=== PATIENT | female | born 1950 | race Two or more races ===

== ENCOUNTER → 2024-06-24 | Outpatient (CLI) | payer OTHER, MEDICAID, SELFPAY ==
--- NOTE | 2024-06-24 10:45 | XR_ITS ---
Examination: Diagnostic digital mammography, bilateral Computer aided detection 3-D breast Tomosynthesis, bilateral Date and time of exam: June 24, 2024 1104 hours INDICATIONS: Left breast lump noticed beginning one week ago Technique: Nonmagnified MLO, CC views of the breasts to been obtained, reconstructed from 3-D Tomosynthesis images. R2 computer aided detection program utilized for evaluation of suspicious masses and/or abnormal calcifications. 3-D Tomosynthesis images obtained. Findings: Scattered areas of fibroglandular density Stable focal asymmetry slightly inner right breast on the CC view Circumscribed masses retroareolar region left breast in aggregate measuring 5.5 cm which may represent cysts Impression: BI-RADS Category 0: Incomplete: Need additional imaging evaluation Recommend follow-up left breast sonography to confirm cyst in the retroareolar region left breast.
== END | disposition home or self-care (01) ==
PROVIDERS: Referring Provider Family Medicine; Visit Provider Family Medicine
DX: R92.8 Other abnormal and inconclusive findings on diagnostic imaging of breast (principal)
CPT/HCPCS: 77062; 77066; G0279

== ENCOUNTER 2025-01-26 12:53 | Outpatient (RCR) | payer OTHER, MEDICAID, SELFPAY ==
--- NOTE | 2025-01-13 12:19 | CTCCONSULT_ITS ---
Patient: ABNER MENDOZA : 1950 MR#: [id number] Page 4 of 5 CONSULTATION NOTE DATE OF CONSULTATION: 01/13/2025 NAME: ABNER MENDOZA ACCOUNT: [id number] : 1950 AGE: 74 REFERRING PHYSICIAN: Wilian Rosas MD PRIMARY PHYSICIAN: Yonathan Baeza MD REASON FOR VISIT: New diagnosis of breast cancer ONCOLOGY HISTORY: DIAGNOSIS: Malignant neoplasm of central portion of left female breast [ICD10] C50.112 DATE OF DIAGNOSIS: 12/04/2024 STAGE/TNM: IIB T3 N0 M0 TREATMENT HISTORY: Care?Plan Start?Date Cycle Day Intent 01/13/2025 Arimidex 1 mg tablet daily HISTORY OF PRESENT ILLNESS: 74-year-old female with a new diagnosis of breast cancer. Patient is living in the halfway after she had stroke. 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 Tobacco?Use:?Denies ETOH?Use:?Denies Drug?Note:?Denies Social History Note:?Resident [facility] CONSULTANT HISTORY: Menarche?-?Age:?16 :?0 Live?Births:?0 MEDICATIONS: 1. Arimidex - 1 mg 1 tab Daily 2. benazepril - 10 mg 2 tab Daily 3. Calcium 500 - 500 mg 1 tab Three times a day 4. carvedilol - 6.25 mg 1 tab Twice a Day 5. Catapres-Tts 2 - 0.2 mg/24 hr 1 Patch Weekly 6. Catapres-Tts 3 - 0.3 mg/24 hr 1 Patch Weekly 7. cranberry extract - 425 mg 1 Capsule Daily 8. cyanocobalamin (vitamin B-12) - 500 mcg 1 tab Daily 9. docusate sodium - 100 mg 2 tab Twice a Day 10. DULoxetine - 60 mg 1 Twice a Day 11. Enulose - 10 gram/15 mL 30 cc Daily 12. Naomi-Lanta - 200-200-20 mg/5 mL 20 cc Every 8 Hours 13. glimepiride - 1 mg 1 tab Daily 14. guaiFENesin - 100 mg/5 mL 10 cc Every 6 Hours 15. insulin glargine - 100 unit/mL 20 Units Every day before sleep 16. lisinopril - 20 mg 1 tab Daily 17. melatonin - 3 mg 2 tab Every day before sleep 18. NovoLIN R Regular U-100 Insuln - 100 unit/mL As directed 19. ondansetron - 4 mg tab Every 6 Hours 20. Ozempic - 0.25 mg or 0.5 mg (2 mg/3 mL) 1 mg Weekly 21. pantoprazole - 40 mg 1 tab Daily 22. Pepcid - 40 mg 1 tab Daily 23. pravastatin - 40 mg 1 tab Daily 24. senna - 187 mg 1 tab Every 12 Hours 25. traMADol - 50 mg 1 tab Every 12 Hours 26. traZODone - 50 mg 1 tab Every 12 Hours 27. turmeric root extract - 500 mg 1 tab Twice a Day 28. Tylenol - 325 mg 2 tab Every 6 Hours 29. Vitamin D - 5,000 unit 1 tab Daily?Palabra Meds? Medications Last Reconciled by Laurie Valiente RN on 01/13/2025 ALLERGIES: No Known Drug Allergies REVIEW OF SYSTEMS: A complete 14-point review of systems was performed and is negative except as noted in interval history. PHYSICAL EXAMINATION: VITAL SIGNS: B/P?119/477, Height?63?inches, Oxygen?Saturation?96% Weight?165?lbs PAIN: 0 - No pain ECOG Performance Status: 0 - Asymptomatic and fully active GENERAL APPEARANCE: Appears well, in no apparent distress, appropriately interactive. HEENT: Normocephalic, no temporal wasting, normal conjunctiva, no scleral icterus, normal hearing, lips without lesions, neck normal range of motion. CARDIOVASCULAR: Not assessed. PULMONARY: Normal respiratory effort, no respiratory distress or use of accessory muscles, speaking in full sentences, no tachypnea. EXTREMITIES: No pedal edema or cyanosis. SKIN: Normal skin appearance. NEUROLOGIC: Alert and oriented x4. PSHYCHIATRIC: Appropriate affect, mood normal, behavior normal, intact thought and speech. LABORATORY DATA: I have personally reviewed and interpreted each of the patient?s relevant lab tests, abnormal findings are below: Date ASSESSMENT/PLAN: Left Breast cancer Patient is doing well Surgery well-healed Naterra ordered for monitoring bone density to evaluate bone health Will start on Arimidex 1 mg tablet daily Advised to take calcium and vitamin D3 daily RTC in 4 weeks ORDERS: Order # Description [id number] Comprehensive Metabolic Panel - 12 + CBC with Auto Diff + MD Follow Up 4 Week + CA 15-3 RETURN TO CLINIC: I reviewed the diagnosis, prognosis, and recommended treatment/procedure options with the patient (and/or their legal videotape sales representative), including the potential benefits, risks, side effects and alternative therapies. We also discussed the option of no treatment and the possibility of clinical trial participation, if applicable. All questions were addressed, and they demonstrated understanding. They provided informed consent to proceed with the proposed plan of care. BILLING AND COMPLIANCE: I reviewed external records from providers outside my specialty as summarized above. I spent a total of 50 minutes on this patient?s care on the day of their visit excluding time spent related to any billed procedures. This time includes time spent with the patient as well as time spent documenting in the medical record, reviewing patients records and tests, obtaining history, placing orders, communicating with other healthcare professionals, counseling the patient, family or caregiver, and/or care coordination for the diagnoses above. Electronically Signed by: Yonathan Baeza MD T: 12:17 PM CC: PCP: Yonathan Baeza Referring: Wilian Rosas This document was completed utilizing speech recognition software. Grammatical errors, random word insertions, pronoun errors, and incomplete sentences are an occasional consequence of this system due to software limitations, ambient noise, and hardware issues. Any formal questions or concerns about the content, text or information contained within the body of this dictation should be directly addressed to the provider for clarification.
== END 2025-02-02 23:59 | disposition home or self-care (01) ==
LOC: SCTC 12:53
PROVIDERS: PCP Hospitalist; Referring Provider Surgery; Visit Provider Radiology Therapeutic Radiology
DX: C50.112 Malignant neoplasm of central portion of left female breast (principal); Z17.0 Estrogen receptor positive status [ER+]; Z17.21 Progesterone receptor positive status; Z17.32 Human epidermal growth factor receptor 2 negative status; Z90.12 Acquired absence of left breast and nipple; Z79.811 Long term (current) use of aromatase inhibitors
CPT/HCPCS: 99213; G0463

== ENCOUNTER → 2025-02-02 | Outpatient (CLI) | payer OTHER, MEDICAID, SELFPAY ==
--- NOTE | 2025-02-02 13:00 | XR_ITS ---
Examination: Bone densitometry Date and time of exam:February 02, 2025, 1257 hours INDICATIONS: Menopause age 52, diabetic, diagnosis left breast carcinoma Technique: Lumbar spine and hip total bone mineralization values of an calculated. Peak reference and age match control results have been displayed. Findings: Lumbar spine total bone mineralization is0.982 gm/cm2. This is 0.6 standard deviations below peak reference. This is 1.7 standard deviations above age-matched controls. Hip total bone mineralization is 0.710 gm/cm2 This is 1.9 standard deviations below peak reference. This is 0.2 standard deviations below age-matched controls Impression: There is normal mineralization based on lumbar spine measurements. There is osteopenia based on hip measurements
== END | disposition home or self-care (01) ==
PROVIDERS: PCP Internal Medicine Hematology & Oncology; Referring Provider Internal Medicine Hematology & Oncology; Visit Provider Internal Medicine Hematology & Oncology
DX: M85.88 Other specified disorders of bone density and structure, other site (principal); C50.112 Malignant neoplasm of central portion of left female breast
CPT/HCPCS: 77080

== ENCOUNTER 2025-02-26 08:24 | Outpatient (RCR) | payer OTHER, MEDICAID, SELFPAY ==
--- NOTE | 2025-02-10 14:36 | CTCSNOTE_ITS ---
[facility] [address] [place], [place] [address] CT Simulation Note Date: 02/10/2025 MR# [id number] Name: ABNER MENDOZA : 1950 (A) DIAGNOSIS: C50.112 Malignant neoplasm of central portion of left female breast (B) Patient was placed in supine position and used Vac-Terri for immobilization purposes. (C) CT slices included left breast (D) 3D Will be needed for maximum sparing of adjacent normal critical structures. (E) Patient tolerated the simulation well and left the room in good condition. Electronically signed by: Flynn Martinez MD, SCAR 02/10/2025 2:33 PM
== END 2025-03-05 23:59 | disposition home or self-care (01) ==
LOC: SCTC 08:24
PROVIDERS: PCP Family Medicine; Referring Provider Radiology Therapeutic Radiology; Visit Provider Internal Medicine Hematology & Oncology
DX: Z51.0 Encounter for antineoplastic radiation therapy (principal); C50.812 Malignant neoplasm of overlapping sites of left female breast; Z17.0 Estrogen receptor positive status [ER+]; Z17.21 Progesterone receptor positive status; Z17.32 Human epidermal growth factor receptor 2 negative status; Z90.12 Acquired absence of left breast and nipple
CPT/HCPCS: 77014; 77290; 77295; 77300; 77334; 99212; G0463

== ENCOUNTER 2025-03-04 08:13 | Outpatient (CLI) | payer OTHER, MEDICAID, SELFPAY ==
[2025-03-03 11:24] LABS: Basophils # (Auto) 0.0 Thou/mm3 (0.0-0.2); Basophils % (Auto) 1 % (0-2.5); Eosinophils # (Auto) 0.3 Thou/mm3 (0.0-0.5); Eosinophils % (Auto) 4 % (0-10); Hematocrit 38.1 % (36.0-46.0); Hemoglobin 11.9 g/dL (12.0-16.0); Immature Granulocytes Auto 0.03 Thou/mm3 (0.00-0.00); Lymphocytes # (Auto) 2.7 Thou/mm3 (1.0-4.8); Lymphocytes % (Auto) 34 % (10-50); Mean Corpuscular HGB Conc 31.2 g/dl (31.0-37.0); Mean Corpuscular Hemoglobin 26.9 pg (25.0-35.0); Mean Corpuscular Volume 86 fL (80-100); Monocytes # (Auto) 0.5 Thou/mm3 (0.0-0.8); Monocytes % (Auto) 7 % (0-12); Neutrophils # (Auto) 4.3 Thou/mm3 (1.8-7.7); Neutrophils % (Auto) 54 % (37-80); Nucleated Red Blood Cell # 0.00 Thou/mm3 (0.00-0.00); Nucleated Red Blood Cell % 0 /100 WBC (0); Platelet Count 279 Thou/mm3 (140-440); RDW Standard Deviation 50.2 fL (36.4-46.3); Red Blood Count 4.43 Miln/mm3 (4.00-5.20); White Blood Count 8.0 Thou/mm3 (3.6-11.0)
[2025-03-03 11:31] LABS: INR 1.0 (0.9-1.3); Partial Thromboplastin Time 26.4 Seconds (22.0-36.0); Prothrombin Time 10.5 Seconds (9.0-12.2)
[2025-03-04] VITALS (8 sets, daily range): BP systolic 154–213; BP diastolic 83–98; PULSE 71–85; RESP 14–17; TEMP 36.7–36.9; O2SAT 92–100
--- NOTE | 2025-03-04 09:00 | XR_ITS ---
Examination: IR venous implantation Port-A-Cath. Ultrasound-guided needle placement right internal jugular vein. Fluoroscopy AP Chest, portable single view Exam date and time: March 04, 2025, 0855 hours INDICATIONS: Breast carcinoma diagnosis, need for long-term intravenous antibiotic therapy. Informed consent provided Technique: A timeout was completed, verifying correct patient, procedure, site, positioning, and special equipment if applicable The patient was placed in a dependent position appropriate for central line placement based on the vein to be cannulated. The patient's right neck was prepped and draped in sterile fashion. Maximum Sterile Barrier Technique used including cap, mask, sterile gown, sterile gloves, and sterile full body drape. If ultrasound technique used: sterile gel and sterile probe covers. Hand Hygiene performed using proper scrub, soap and water, or alcohol-based hand rub. Site right portable apparatus utilized to confirm patency of the right internal jugular vein, utilizing ultrasound for guidance 10/04 21-gauge needle puncture into the right internal jugular vein Ultrasound images were recorded and stored. Successful micropuncture with a 21-gauge needle was performed. 0.18 wire guide was introduced into the IVC under fluoroscopic guidance. The wires is then exchanged for a 0.25 J-wire guide placed in the vena cava. Subcutaneous pocket formed with blunt dissection in the upper chest Portacatheter reservoir connected to a 8 Tajik Port-A-Cath line, 19 cm placed through the venous sheath into the superior vena cava under fluoroscopic guidance Perfusion to the extremity distal to the point of catheter insertion was checked and found to be adequate The attending radiologist was present for the entire procedure Estimated blood loss 5 cc. Findings: Under fluoroscopy, the tip of the Port-A-Cath is in good position in the vena cava. Portable chest x-ray, post Port-A-Cath placement, as ordered. Impression: Successful ultrasound-guided needle placement right internal jugular vein. Successful IR venous implantation Port-A-Cath percutaneous. Fluoroscopy 0.2-minute radiation dose 4.72 mGy 1 spot fluoroscopic chest. AP portable chest completion procedure demonstrates satisfactory position Port-A-Cath tip SVC. May use Port-A-Cath
[2025-03-04] MEDS: HEPARIN SOD LOCK SYR 100 UNIT/ML 500 UNIT IV (09:20)
[2025-03-04] MEDS: LIDOCAINE 1% W/EPI 1:100K 20 ML VIAL 4 ML INFL (09:20)
[2025-03-04] MEDS: LIDOCAINE INJ PF 1% 30 ML VIAL 6 ML INFL (09:20)
[2025-03-04] MEDS: ceFAZolin/D5W 1 GM IVPB 1 GM/50 ML BAG 100 GM INFL (09:25)
[2025-03-04] MEDS: ceFAZolin/D5W 1 GM IVPB 1 GM/50 ML BAG IV (09:30)
[2025-03-04] MEDS: fentaNYL CIT INJ 50 mCg/ML AMP 2ML 100 MCG IVP (09:55)
== END 2025-03-04 11:25 | disposition home or self-care (01) ==
LOC: SLAB 08:13 → SIRX 08:15
PROVIDERS: PCP Family Medicine; Referring Provider Internal Medicine Hematology & Oncology; Visit Provider Radiology Diagnostic Radiology
DX: C50.112 Malignant neoplasm of central portion of left female breast (principal)
CPT/HCPCS: 36571; 36415; 76937; 77001; 85025; 85610; 85730; A4649; C1769; C1788; C1894; J0689; J1642; J3010; J3490; J7050

== ENCOUNTER 2025-03-31 08:57 | Outpatient (RCR) | payer OTHER, MEDICAID, SELFPAY ==
[2025-03-08 16:19] LABS: Basophils # (Auto) 0.0 Thou/mm3 (0.0-0.2); Basophils % (Auto) 0 % (0-2.5); Eosinophils # (Auto) 0.0 Thou/mm3 (0.0-0.5); Eosinophils % (Auto) 0 % (0-10); Hematocrit 38.2 % (36.0-46.0); Hemoglobin 12.1 g/dL (12.0-16.0); Immature Granulocytes Auto 0.09 Thou/mm3 (0.00-0.00); Lymphocytes # (Auto) 1.1 Thou/mm3 (1.0-4.8); Lymphocytes % (Auto) 14 % (10-50); Mean Corpuscular HGB Conc 31.7 g/dl (31.0-37.0); Mean Corpuscular Hemoglobin 27.6 pg (25.0-35.0); Mean Corpuscular Volume 87 fL (80-100); Monocytes # (Auto) 0.1 Thou/mm3 (0.0-0.8); Monocytes % (Auto) 1 % (0-12); Neutrophils # (Auto) 6.2 Thou/mm3 (1.8-7.7); Neutrophils % (Auto) 83 % (37-80); Nucleated Red Blood Cell # 0.00 Thou/mm3 (0.00-0.00); Nucleated Red Blood Cell % 0 /100 WBC (0); Platelet Count 238 Thou/mm3 (140-440); RDW Standard Deviation 50.4 fL (36.4-46.3); Red Blood Count 4.39 Miln/mm3 (4.00-5.20); White Blood Count 7.4 Thou/mm3 (3.6-11.0)
[2025-03-08 16:26] LABS: Alanine Aminotransferase 22 U/L (10-49); Albumin, Serum 4.1 gm/dL (3.4-4.8); Albumin/Globulin Ratio 1.5 (1.2-2.2); Alkaline Phosphatase 152 U/L (46-116); Anion Gap 11 (7-16); Aspartate Amino Transferase 18 U/L (0-34); BUN/Creatinine Ratio 12 Ratio (12-20); Bilirubin,Total 0.2 mg/dL (0.3-1.2); Blood Urea Nitrogen 15 mg/dL (9-23); Calcium 9.2 mg/dL (8.3-10.6); Calcium (Corrected) 9.2 mg/dL (8.5-10.1); Carbon Dioxide 24.0 mMol/L (20.0-31.0); Chloride 105 mMol/L (98-107); Creatinine (Component) 1.3 mg/dL (0.6-1.3); Globulin 2.7 gm/dL (2.3-3.5); Glucose 352 mg/dL (74-106); Osmolality,Calculated 294 (275-295); Potassium 4.5 mMol/L (3.4-5.1); Sodium 140 mMol/L (136-145); Total Protein 6.8 gm/dL (5.7-8.2); eGFR 44 See Note
[2025-03-08 16:41] LABS: CA 15-3 2.5 U/mL (<32.4)
--- NOTE | 2025-03-21 20:11 | CTCFLWUP_ITS ---
Patient: ABNER DE JESUS : 1950 Page 2 of 3 FOLLOW UP NOTE DATE OF SERVICE: 03/18/2025 NAME: ABNER DE JESUS ACCOUNT: [id number] : 1950 AGE: 74 INTERVAL HISTORY: Patient doing well on chemotherapy . ONCOLOGY HISTORY:?[facility] Oncology Hx? DIAGNOSIS: Malignant neoplasm of central portion of left female breast [ICD10] C50.112 DATE OF DIAGNOSIS: 12/04/2024 STAGE/TNM: IIB T3 N0 M0 TREATMENT HISTORY: Care?Plan Start?Date Cycle Day Intent DOCEtaxel?75,?Cyclophosphamide?600 03/09/2025 1 21 Curative?(adjuvant) HISTORY OF PRESENT ILLNESS: 74-year-old female with a new diagnosis of breast cancer. Patient is living in the halfway after she had stroke. 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 Arimidex - 1 mg 1 tab Daily 2. benazepril - 10 mg 2 tab Daily 3. calcium carbonate-vitamin D3 - 600 mg-2.5 mcg (100 unit) 1 Capsule Daily 4. carvedilol - 6.25 mg 1 tab Twice a Day 5. Catapres-Tts 2 - 0.2 mg/24 hr 1 Patch Weekly 6. Catapres-Tts 3 - 0.3 mg/24 hr 1 Patch Weekly 7. Compazine - 5 mg 5 mg Daily 8. Cortisone (hydrocortisone) - 1 % 1 gm Daily 9. cranberry extract - 425 mg 1 Capsule Daily 10. cyanocobalamin (vitamin B-12) - 500 mcg 1 tab Daily 11. dexamethasone - 4 mg 8 mg Daily 12. docusate sodium - 100 mg 2 tab Twice a Day 13. DULoxetine - 60 mg 1 Twice a Day 14. Enulose - 10 gram/15 mL 30 cc Daily 15. Naomi-Lanta - 200-200-20 mg/5 mL 20 cc Every 8 Hours 16. glimepiride - 1 mg 1 tab Daily 17. guaiFENesin - 100 mg/5 mL 10 cc Every 6 Hours 18. insulin glargine - 100 unit/mL 20 Units Every day before sleep 19. lactulose - 10 gram/15 mL 30 cc Every day before sleep 20. lisinopril - 20 mg 1 tab Daily 21. losartan - 50 mg 1 tab Daily 22. magnesium oxide - 400 mg magnesium 1 tab 1 TAB TWICE DAILY 23. melatonin - 3 mg 2 tab Every day before sleep 24. NovoLIN R Regular U-100 Insuln - 100 unit/mL As directed 25. ondansetron - 4 mg tab Every 6 Hours 26. ondansetron - 4 mg 8 mg Daily 27. Ozempic - 0.25 mg or 0.5 mg (2 mg/3 mL) 1 mg Weekly 28. pantoprazole - 40 mg 1 tab Daily 29. Pepcid - 40 mg 1 tab Daily 30. pravastatin - 40 mg 1 tab Daily 31. senna - 187 mg 1 tab Every 12 Hours 32. traMADol - 50 mg 1 tab Every 12 Hours 33. traZODone - 50 mg 1 tab Every 12 Hours 34. turmeric root extract - 500 mg 1 tab Twice a Day 35. Tylenol - 325 mg 2 tab Every 6 Hours 36. Vitamin D - 5,000 unit 1 tab Daily?Palabra Meds? Medications Last Reconciled by Abner Butt MD on 03/18/2025 ALLERGIES: No Known Drug Allergies; Clorhexidine REVIEW OF SYSTEMS: A complete 14-point review of systems was performed and is negative except as noted in interval history. PHYSICAL EXAMINATION:?CloneBlock PE? VITAL SIGNS: Temperature?96.7, B/P?174/75, Oxygen?Saturation?95% PAIN: 0 - No pain ECOG Performance Status: 2 - Symptomatic; ambulatory; capable of self-care; >50% of waking hrs. not in bed GENERAL APPEARANCE: Appears well, in no apparent distress, appropriately interactive. HEENT: Normocephalic, no temporal wasting, normal conjunctiva, no scleral icterus, normal hearing, lips without lesions, neck normal range of motion. CARDIOVASCULAR: Not assessed. PULMONARY: Normal respiratory effort, no respiratory distress or use of accessory muscles, speaking in full sentences, no tachypnea. EXTREMITIES: No pedal edema or cyanosis. SKIN: Normal skin appearance. NEUROLOGIC: Alert and oriented x4. PSHYCHIATRIC: Appropriate affect, mood normal, behavior normal, intact thought and speech. LABORATORY DATA: I have personally reviewed and interpreted each of the patient?s relevant lab tests, abnormal findings are below: Date 03/03/25 03/08/25 03/09/25 ??WHITE?BLOOD?COUNT?(Thou/mm3) 8.0 7.4 ? ??RED?BLOOD?COUNT?(Miln/mm3) 4.43 4.39 ? ??HEMOGLOBIN?(gm/dl) 11.9?L 12.1 ? ??HEMATOCRIT?(%) 38.1 38.2 ? ??PLATELET?COUNT?(Thou/mm3) 279 238 ? ??NEUTROPHILS?%,?AUTO?(%) 54 83?H ? ??LYMPH?%,?AUTO?(%) 34 14 ? ??NEUTROPHILS,?AUTO?(Thou/mm3) 4.3 6.2 ? ??GLUCOSE,RANDOM?(mg/dL) ? 352?H 400 ??BLOOD?UREA?NITROGEN?(mg/dL) ? 15 ? ??CREATININE?(mg/dL) ? 1.30 ? ??SODIUM?(mmol/L) ? 140 ? ??POTASSIUM?(mmol/L) ? 4.5 ? ??CHLORIDE?(mmol/L) ? 105 ? ??CrCl?(CandG)?(ml/min) ? 40.88 ? ??AST/SGOT?(Unit/L) ? 18 ? ??ALT/SGPT?(Unit/L) ? 22 ? ??ALKALINE?PHOSPHATASE?(Unit/L) ? 152?H ? ??BILIRUBIN,?TOTAL?(mg/dL) ? 0.2?L ? ??PROTEIN?TOTAL?(gm/dl) ? 6.8 ? ??ALBUMIN,?SERUM?(gm/dl) ? 4.1 ? ??GLOBULIN?(gm/dl) ? 2.7 ? ??ALBUMIN/GLOBULIN?RATIO ? 1.5 ? ??CALCIUM,?SERUM?(mg/dL) ? 9.2 ? ??CALCIUM?SERUM?(CORRECTED)?(mg/dL) ? 9.2 ? ASSESSMENT/PLAN:?Marcus Baeza Assessment/Plan? Left Breast cancer Patient is doing well Surgery well-healed Naterra ordered for monitoring bone density to evaluate bone health Will start on Arimidex 1 mg tablet daily Advised to take calcium and vitamin D3 daily RTC in 4 weeks ORDERS: Order # Description [id number] CBC + Comprehensive Metabolic Panel [id number] Lab Appointment [id number] Follow Up Appointment [id number] Infusion 5 Hours [id number] Injection Clinic 15 Min [id number] CBC + Comprehensive Metabolic Panel [id number] Lab Appointment [id number] Follow Up Appointment [id number] Infusion 5 Hours [id number] Injection Clinic 15 Min [id number] CBC + Comprehensive Metabolic Panel [id number] Lab Appointment [id number] Follow Up Appointment [id number] Infusion 5 Hours [id number] Injection Clinic 15 Min [id number] CBC + Comprehensive Metabolic Panel [id number] Lab Appointment [id number] Follow Up Appointment RETURN TO CLINIC: I reviewed the diagnosis, prognosis, and recommended treatment/procedure options with the patient (and/or their legal sales representatives), including the potential benefits, risks, side effects and alternative therapies. We also discussed the option of no treatment and the possibility of clinical trial participation, if applicable. All questions were addressed, and they demonstrated understanding. They provided informed consent to proceed with the proposed plan of care. BILLING AND COMPLIANCE: I reviewed external records from providers outside my specialty as summarized above. I spent a total of 50 minutes on this patient?s care on the day of their visit excluding time spent related to any billed procedures. This time includes time spent with the patient as well as time spent documenting in the medical record, reviewing patients records and tests, obtaining history, placing orders, communicating with other healthcare professionals, counseling the patient, family or caregiver, and/or care coordination for the diagnoses above. Electronically Signed by: Yonathan Baeza MD T: 8:09 PM CC: Enrique? PCP: Elda Thornton Referring: Norberto, Elda This document was completed utilizing speech recognition software. Grammatical errors, random word insertions, pronoun errors, and incomplete sentences are an occasional consequence of this system due to software limitations, ambient noise, and hardware issues. Any formal questions or concerns about the content, text or information contained within the body of this dictation should be directly addressed to the provider for clarification.
[2025-03-29 10:27] LABS: Basophils # (Auto) 0.1 Thou/mm3 (0.0-0.2); Basophils % (Auto) 1 % (0-2.5); Eosinophils # (Auto) 0.0 Thou/mm3 (0.0-0.5); Eosinophils % (Auto) 0 % (0-10); Hematocrit 31.3 % (36.0-46.0); Hemoglobin 9.9 g/dL (12.0-16.0); Immature Granulocytes Auto 0.06 Thou/mm3 (0.00-0.00); Lymphocytes # (Auto) 2.0 Thou/mm3 (1.0-4.8); Lymphocytes % (Auto) 22 % (10-50); Mean Corpuscular HGB Conc 31.6 g/dl (31.0-37.0); Mean Corpuscular Hemoglobin 27.6 pg (25.0-35.0); Mean Corpuscular Volume 87 fL (80-100); Monocytes # (Auto) 0.8 Thou/mm3 (0.0-0.8); Monocytes % (Auto) 9 % (0-12); Neutrophils # (Auto) 5.9 Thou/mm3 (1.8-7.7); Neutrophils % (Auto) 67 % (37-80); Nucleated Red Blood Cell # 0.00 Thou/mm3 (0.00-0.00); Nucleated Red Blood Cell % 0 /100 WBC (0); Platelet Count 346 Thou/mm3 (140-440); RDW Standard Deviation 52.6 fL (36.4-46.3); Red Blood Count 3.59 Miln/mm3 (4.00-5.20); White Blood Count 8.8 Thou/mm3 (3.6-11.0)
[2025-03-29 10:52] LABS: Alanine Aminotransferase 10 U/L (10-49); Albumin, Serum 3.7 gm/dL (3.4-4.8); Albumin/Globulin Ratio 1.5 (1.2-2.2); Alkaline Phosphatase 106 U/L (46-116); Anion Gap 9 (7-16); Aspartate Amino Transferase 14 U/L (0-34); BUN/Creatinine Ratio 13 Ratio (12-20); Bilirubin,Total 0.2 mg/dL (0.3-1.2); Blood Urea Nitrogen 15 mg/dL (9-23); Calcium 8.7 mg/dL (8.3-10.6); Calcium (Corrected) 8.9 mg/dL (8.5-10.1); Carbon Dioxide 26.5 mMol/L (20.0-31.0); Chloride 106 mMol/L (98-107); Creatinine (Component) 1.2 mg/dL (0.6-1.3); Globulin 2.4 gm/dL (2.3-3.5); Glucose 253 mg/dL (74-106); Osmolality,Calculated 291 (275-295); Potassium 4.4 mMol/L (3.4-5.1); Sodium 141 mMol/L (136-145); Total Protein 6.1 gm/dL (5.7-8.2); eGFR 48 See Note
[2025-03-29 11:04] LABS: CA 15-3 4.7 U/mL (<32.4)
== END 2025-04-04 23:59 | disposition home or self-care (01) ==
LOC: SCTC 08:57
PROVIDERS: PCP Family Medicine; Referring Provider Family Medicine; Visit Provider Internal Medicine Hematology & Oncology
DX: Z51.11 Encounter for antineoplastic chemotherapy (principal); C50.112 Malignant neoplasm of central portion of left female breast; Z17.0 Estrogen receptor positive status [ER+]; Z17.21 Progesterone receptor positive status; Z17.32 Human epidermal growth factor receptor 2 negative status; Z90.12 Acquired absence of left breast and nipple
CPT/HCPCS: 36591; 80053; 85025; 86300; 96367; 96372; 96413; 96417; 99212; A4216; J1100; J1434; J1642; J2405; J3490; J7040; J7050; J9075; J9171; Q5111; A9270; G0463

== ENCOUNTER → 2025-04-06 | Outpatient (CLI) | payer OTHER, MEDICAID, SELFPAY ==
--- NOTE | 2025-04-06 10:30 | ECHO_ITS ---
Patient Info Name: Mary Wood Age: 74 years : 1950 Gender: Female Ht: 157 cm Wt: 91 kg BSA: 2.04 m2 BP: 178 / 98 mmHg HR: 90 bpm Exam Date: 04/06/2025 10:47 AM Admit Date: 04/06/2025 Site: [facility] Room Number: OP Patient Status: O Exam Type: CA echo doppler complete Staff Cytotechnologist: Dayn Liu Ordering Physician: Yonathan Baeza Referring Physician: Yonathan Baeza Study Info Indications Malignant neoplasm of central portion of left female breast - Primary Location: SDIM Left Ventricular Outflow Tract Name Value Normal LVOT 2D LVOT Diameter 1.8 cm LVOT Doppler LVOT Peak Velocity 74 cm/s LVOT Mean Gradient 1 mmHg LVOT VTI 15 cm LVOT VTI/AV VTI Ratio 0.7 LVOT Stroke Volume 39 ml Pulmonic Valve Name Value Normal PV Doppler PV Peak Velocity 113 cm/s Mitral Valve Name Value Normal MV Doppler MV Decel Orange 602 cm/s2 MV PHT 31 ms MV Area (PHT) 7.2 cm2 4.0-5.0 MV Diastolic Function MV E Peak Velocity 64 cm/s MV A Peak Velocity 109 cm/s MV E/A 0.6 MV Annular TDI MV Septal e' Velocity 3.4 cm/s MV E/e' (Septal) 18.8 MV Lateral e' Velocity 7.8 cm/s MV E/e' (Lateral) 8.1 MV e' Average 5.60 cm/s MV E/e' (Average) 13.5 Tricuspid Valve Name Value Normal TV Regurgitation Doppler TR Peak Velocity 126 cm/s Estimated PAP/RSVP RA Pressure 8 mmHg <=5 PA Systolic Pressure 14 mmHg <36 RV Systolic Pressure 14 mmHg <36 TV Annular TDI TV Lateral Swathi s' Velocity 13.6 cm/s >=9.5 Aortic Valve Name Value Normal AV 2D/MM AV Cusp Sep (MM) 1.4 cm AV Doppler AV Peak Velocity 112 cm/s AV Mean Gradient 3 mmHg AV VTI 23 cm AV Area (Cont Eq VTI) 1.7 cm2 >=3.0 AV Area (Cont Eq Jesus) 1.7 cm2 AV DI (Jesus) 0.66 AV Regurgitation 2D LVOT Area 2.5 cm2 AV Regurgitation Doppler AR Decel Orange 107 cm/s2 AR PHT 389 ms Ventricles Name Value Normal LV Dimensions 2D/MM IVS Diastolic Thickness (2D) 0.9 cm 0.6-0.9 LVID Diastole (2D) 3.9 cm 3.8-5.2 LVIW Diastolic Thickness (2D) 0.8 cm 0.6-0.9 LVID Systole (2D) 2.8 cm 2.2-3.5 LVOT Diameter 1.8 cm LV Mass (2D Cubed) 97.36 g 67.00-162.00 LV Mass Index (2D Cubed) 48 g/m2 43-95 Relative Wall Thickness (2D) 0.41 <=0.42 IVS/LVIW Diastolic Thickness (2D) 1.13 0.00-1.50 LV Fractional Shortening/Ejection Fraction 2D/MM LV Fractional Shortening (2D) 28 % 27-45 LV EF (2D Teichholz) 55 % RV Dimensions 2D/MM TV Lateral Swathi s' Velocity 13.6 cm/s >=9.5 Atria Name Value Normal LA Dimensions LA Volume (4C A-L) 36 ml LA Volume (BP A-L) 40 ml Left Ventricle Left ventricular chamber dimension is normal. Left ventricular systolic function is normal with visually estimated ejection fraction of 55-60%. There is normal geometry noted in the left ventricle. Left ventricular segmental wall motion is normal. There is grade I diastolic dysfunction in the left ventricle. Right Ventricle Right ventricular chamber dimension is normal. Right ventricular systolic function is normal. Left Atrium Left atrial chamber dimension is normal. Right Atrium Right atrial chamber dimension is normal. Aortic Valve The aortic valve is trileaflet. There is mild aortic valve sclerosis. There is no aortic valve stenosis with a peak velocity of 112 cm/s, mean gradient of 3 mmHg, and aortic valve area of 1.7 cm2. There is mild aortic valve regurgitation. Pulmonic Valve The pulmonic valve is normal. There is no pulmonic valve stenosis. There is no pulmonic regurgitation. Mitral Valve The mitral valve has normal leaflets. There is no mitral valve stenosis. There is trace mitral valve regurgitation. Tricuspid Valve The tricuspid valve leaflets are normal. There is no tricuspid valve stenosis. There is trace tricuspid valve regurgitation. No pulmonary hypertension, estimated pulmonary arterial systolic pressure is 14 mmHg and systemic blood pressure of 178 mmHg in systole. Pericardium/Pleural The pericardium appears normal. There is no pericardial effusion. No pleural effusion visualized. Inferior Vena Cava Not well visualized inferior vena cava with >50% collapse upon inspiration consistent with normal right atrial pressure, 8 mmHg. Aorta The aortic measurements are indexed to age and body surface area. Summary 1. Left ventricle size is normal and systolic function is normal. Estimated ejection fraction is 55-60%. There is grade I diastolic dysfunction. 2. Right ventricle chamber size is normal and systolic function is normal. Estimated RVSP is 14 mmHg. 3. There is mild aortic valve sclerosis with no stenosis and mild regurgitation. 4. There is trace mitral valve regurgitation. 5. Mitral valve posterior leaflet and annulas calcified. 6. There is trace tricuspid valve regurgitation. Report Signatures Finalized by Barrie Jackson on 04/06/2025 05:06 PM
== END | disposition home or self-care (01) ==
PROVIDERS: PCP Family Medicine; Referring Provider Internal Medicine Hematology & Oncology; Visit Provider Internal Medicine Hematology & Oncology
DX: I08.3 Combined rheumatic disorders of mitral, aortic and tricuspid valves (principal); I70.8 Atherosclerosis of other arteries; C50.112 Malignant neoplasm of central portion of left female breast
CPT/HCPCS: 93306

== ENCOUNTER 2025-04-21 09:32 | Outpatient (RCR) | payer OTHER, MEDICAID, SELFPAY ==
[2025-04-19 11:37] LABS: Basophils # (Auto) 0.1 Thou/mm3 (0.0-0.2); Basophils % (Auto) 1 % (0-2.5); Eosinophils # (Auto) 0.0 Thou/mm3 (0.0-0.5); Eosinophils % (Auto) 0 % (0-10); Hematocrit 33.4 % (36.0-46.0); Hemoglobin 10.8 g/dL (12.0-16.0); Immature Granulocytes Auto 0.05 Thou/mm3 (0.00-0.00); Lymphocytes # (Auto) 1.4 Thou/mm3 (1.0-4.8); Lymphocytes % (Auto) 13 % (10-50); Mean Corpuscular HGB Conc 32.3 g/dl (31.0-37.0); Mean Corpuscular Hemoglobin 28.9 pg (25.0-35.0); Mean Corpuscular Volume 89 fL (80-100); Monocytes # (Auto) 0.2 Thou/mm3 (0.0-0.8); Monocytes % (Auto) 2 % (0-12); Neutrophils # (Auto) 8.9 Thou/mm3 (1.8-7.7); Neutrophils % (Auto) 84 % (37-80); Nucleated Red Blood Cell # 0.00 Thou/mm3 (0.00-0.00); Nucleated Red Blood Cell % 0 /100 WBC (0); Platelet Count 332 Thou/mm3 (140-440); RDW Standard Deviation 55.6 fL (36.4-46.3); Red Blood Count 3.74 Miln/mm3 (4.00-5.20); White Blood Count 10.6 Thou/mm3 (3.6-11.0)
[2025-04-19 11:56] LABS: Alanine Aminotransferase 21 U/L (10-49); Albumin, Serum 3.8 gm/dL (3.4-4.8); Albumin/Globulin Ratio 1.4 (1.2-2.2); Alkaline Phosphatase 229 U/L (46-116); Anion Gap 9 (7-16); Aspartate Amino Transferase 17 U/L (0-34); BUN/Creatinine Ratio 9 Ratio (12-20); Bilirubin,Total 0.2 mg/dL (0.3-1.2); Blood Urea Nitrogen 11 mg/dL (9-23); Calcium 9.1 mg/dL (8.3-10.6); Calcium (Corrected) 9.3 mg/dL (8.5-10.1); Carbon Dioxide 24.8 mMol/L (20.0-31.0); Chloride 105 mMol/L (98-107); Creatinine (Component) 1.2 mg/dL (0.6-1.3); Globulin 2.8 gm/dL (2.3-3.5); Glucose 283 mg/dL (74-106); Osmolality,Calculated 286 (275-295); Potassium 4.5 mMol/L (3.4-5.1); Sodium 139 mMol/L (136-145); Total Protein 6.6 gm/dL (5.7-8.2); eGFR 48 See Note
[2025-04-19 13:37] LABS: CA 15-3 4.7 U/mL (<32.4)
== END 2025-05-05 23:59 | disposition home or self-care (01) ==
LOC: SCTC 09:32
PROVIDERS: PCP Family Medicine; Referring Provider Family Medicine; Visit Provider Internal Medicine Hematology & Oncology
DX: Z51.11 Encounter for antineoplastic chemotherapy (principal); C50.112 Malignant neoplasm of central portion of left female breast; Z17.0 Estrogen receptor positive status [ER+]; Z17.21 Progesterone receptor positive status; Z17.32 Human epidermal growth factor receptor 2 negative status; Z90.12 Acquired absence of left breast and nipple; Z79.811 Long term (current) use of aromatase inhibitors
CPT/HCPCS: 36591; 80053; 85025; 86300; 96367; 96372; 96413; 96417; A4216; J1100; J1434; J1642; J2405; J3490; J7040; J7050; J9075; J9171; Q5111